=== PATIENT | female | born 1930 | race Hispanic/Latino ===

== ENCOUNTER 2017-01-24 04:32 | Emergency (ER) | payer MEDICARE, OTHER ==
[2017-01-24 04:33] VITALS: BMI 33.9
[2017-01-24 04:49] VITALS: RESP 18; TEMP 98.4
--- NOTE | 2017-01-24 05:16 | ED PDOC ---
Arrival/HPI - General Chief Complaint: GI Problem Time Seen by Provider: 01/24/17 05:03 Historian: Patient - History of Present Illness Narrative History of Present Illness (Text): 01/24/17 05:20 This is an 86Y F with PMH PUD, HTN, COPD who came in for constipation and rectal pain x 2 days. She reports she has been constipated and has not been able to go. She feels stool is leaking out. She denies abdominal pain, nausea, vomiting, CP, SOB, dysuria or hematuria. She does see Dr. Russell for her peptic ulcers. Time/Duration: < week (2 days ) Symptom Onset: Gradual Symptom Course: Unchanged Quality: Aching Severity Level: 5 Activities at Onset: Rest Context: Home Past Medical History - Provider Review Nursing Documentation Reviewed: Yes - Infectious Disease Hx of Infectious Diseases: None - Tetanus Immunization Tetanus Immunization: Unknown - Cardiac Hx Pacemaker: No - Pulmonary Hx Chronic Obstructive Pulmonary Disease (COPD): Yes - Neurological Hx Paralysis: No - Hematological/Oncological Hx Blood Transfusions: No Hx Blood Transfusion Reaction: No - Musculoskeletal/Rheumatological Hx Musculoskeletal Disorders: Yes - Psychiatric Hx Emotional Abuse: No Hx Physical Abuse: No Hx Substance Use: No - Surgical History Hx Appendectomy: Yes Hx Cholecystectomy: Yes - Anesthesia Hx Anesthesia Reactions: No Hx Malignant Hyperthermia: No - Suicidal Assessment Feels Threatened In Home Enviroment: No Family/Social History - Physician Review Nursing Documentation Reviewed: Yes Family/Social History: Hypertension Smoking Status: no Hx Alcohol Use: No Hx Substance Use: No Allergies/Home Meds Allergies/Adverse Reactions: Allergies iron Allergy (Verified 06/28/16 11:08) ITCHING Sulfa (Sulfonamide Antibiotics) Allergy (Verified 06/28/16 11:09) RASH Home Medications: Home Meds Medication Instructions Recorded Confirmed Albuterol Sulfate [Proair Hfa] 0.09 mg IH QID 10/04/13 01/24/17 Propranolol [Inderal] 40 mg PO BID 10/04/13 01/24/17 Tiotropium [Spiriva] 18 mcg IH DAILY 10/04/13 01/24/17 Cholecalciferol (Vitamin D3) 2,000 iu PO DAILY 07/18/15 01/24/17 [Vitamin D] Cranberry Fruit Extract [Cranberry] 250 mg PO DAILY 11/10/15 05/19/17 Fluticasone Propionate [Flovent 0.11 mg IH BID 07/18/15 01/24/17 Hfa] Losartan [Cozaar] 100 mg PO DAILY 07/19/15 01/24/17 Acetaminophen [Tylenol Extra 500 mg PO DAILY PRN 06/25/16 01/24/17 Strength] Amlodipine/Atorvastatin [Caduet 5 1 tab PO DAILY 06/25/16 01/24/17 mg-10 mg] Ascorbate Calcium [Vitamin C] 500 mg PO DAILY 06/25/16 01/24/17 Cyanocobalamin [Vitamin B12] 500 mg PO DAILY 06/25/16 01/24/17 Omeprazole 20 mg PO ACB 06/25/16 01/24/17 Solifenacin Succinate [Vesicare] 5 mg PO DAILY 06/25/16 01/24/17 Venlafaxine [Effexor] 37.5 mg PO BID 06/25/16 01/24/17 Review of Systems - Physician Review All systems were reviewed & negative as marked: Yes - Review of Systems Constitutional: Normal. absent: Fevers Respiratory: Normal. absent: SOB, Cough Cardiovascular: Normal. absent: Chest Pain, Palpitations Gastrointestinal: Abdominal Pain, Stool Changes, Constipation. absent: Diarrhea , Nausea, Vomiting Genitourinary Female: Normal. absent: Dysuria, Frequency, Hematuria Musculoskeletal: Normal Skin: Normal Neurological: Normal. absent: Headache, Dizziness Physical Exam Vital Signs Reviewed: Yes Vital Signs Temp Pulse Resp BP Pulse Ox 01/24/17 04:46 98.4 F 88 18 152/65 H 99 Temperature: Afebrile Blood Pressure: Normal Pulse: Regular Respiratory Rate: Normal Appearance: Positive for: Well-Appearing, Non-Toxic, Comfortable Pain Distress: None Mental Status: Positive for: Alert and Oriented X 3 - Systems Exam Head: Present: Atraumatic, Normocephalic Pupils: Present: PERRL Extroacular Muscles: Present: EOMI Conjunctiva: Present: Normal Mouth: Present: Moist Mucous Membranes Neck: Present: Normal Range of Motion Respiratory/Chest: Present: Clear to Auscultation, Good Air Exchange. No: Respiratory Distress, Accessory Muscle Use Cardiovascular: Present: Regular Rate and Rhythm, Normal S1, S2. No: Murmurs Abdomen: Present: Normal Bowel Sounds. No: Tenderness, Distention, Peritoneal Signs Rectal: Present: Normal Rectal Tone, Other (stool in rectum ). No: Occult Blood , Rectal Tenderness, Hemorrhoids Back: Present: Normal Inspection Upper Extremity: Present: Normal Inspection. No: Cyanosis, Edema Lower Extremity: Present: Normal Inspection. No: Edema Neurological: Present: GCS=15, CN II-XII Intact, Speech Normal Skin: Present: Warm, Dry, Normal Color. No: Rashes Psychiatric: Present: Alert, Oriented x 3, Normal Insight, Normal Concentration Medical Decision Making ED Course and Treatment: 01/24/17 05:22 Impression: This is an 86Y F with PMH HTN, PUD, COPD who came to ED for constipation and rectal pain. Stool was seen in rectal vault, no hemorrhoids or erythema noticed. Differential Diagnosis: -- constipation, fecal impaction Plan: -- Abdominal XR -- Reassess and disposition Prior Visits: Notes and results from previous visits were reviewed. Discharge Instructions: Re-evaluation. Patient feels better. Discussed results and plan with patient who expresses understanding. All questions answered and there is agreement with the plan to discharge home with instructions. Patient stable for discharge. Return if symptoms persist or worsen. - RAD Interpretation Narrative RAD Interpretations (Text): 01/24/17 06:07 Abdominal XR showed constipation. Radiology Orders: 01/24/17 05:06 ABD 2 VIEWS (FLAT/UP OR DECUB) [RAD] Stat - Medication Orders Current Medication Orders: Discontinued Medications Sodium Phosphate (Fleet Enema) 135 ml RC STAT STA Stop: 01/24/17 06:02 Last Admin: 01/24/17 06:27 Dose: 135 ml Disposition/Present on Arrival - Present on Arrival Any Indicators Present on Arrival: No History of DVT/PE: No History of Uncontrolled Diabetes: No Urinary Catheter: No History of Decub. Ulcer: No History Surgical Site Infection Following: None - Disposition Have Diagnosis and Disposition been Completed?: Yes Diagnosis: Constipation Disposition Time: 06:00 Patient Plan: Discharge Patient Problems: Current Active Problems Problem Status Onset Constipation Acute Condition: GOOD Discharge Instructions (ExitCare): Constipation (GEN) Print Language: MOLDOVAN Additional Instructions: Mrs. Dowling, thank you for letting us take care of you today. Your provider was Dr. Limon. You were treated for constipation. The emergency medical care you received today was directed at your acute symptoms. If you were prescribed any medication, please fill it and take as directed. It may take several days for your symptoms to resolve. Return to the Emergency Department if your symptoms worsen, do not improve, or if you have any other problems. Please contact your doctor or call one of the physicians/clinics you have been referred to that are listed on the Patient Visit Information form that is included in your discharge packet. Bring any paperwork you were given at discharge with you along with any medications you are taking to your follow up visit. Our treatment cannot replace ongoing medical care by a primary care provider (PCP) outside of the emergency department. [facility] care today. If you had an X-Ray or CT scan: A Radiologist will review the ED reading if any change in treatment is needed we will contact you. Prescriptions: Docusate Sodium [Colace] 100 mg PO Q8H PRN #20 capsule PRN Reason: Constipation Sod Phos,M-B/Na Phos,Di-Ba [Fleet Enema Extra] 230 ml RC Q12H PRN #4 enema PRN Reason: Constipation
[2017-01-24 07:14] VITALS: BP 145/85; PULSE 84; O2SAT 95
--- NOTE | 2017-01-24 09:16 | RAD ---
HISTORY: constipation COMPARISON: No prior. FINDINGS: BOWEL: Normal. No obstruction. No free air. There is a moderate amount of constipation in the right side of the colon BONES: Normal. OTHER FINDINGS: None. IMPRESSION: Moderate constipation
== END 2017-01-24 07:27 | disposition short-term general hospital (02) ==
LOC: ED 04:32
DX: K59.00 Constipation, unspecified (principal)

== ENCOUNTER 2017-02-18 11:09 | Day surgery (SDC) | payer MEDICARE, OTHER ==
[2017-02-18] MEDS ORDERED: Sodium Chloride 0.9% 1,000 ML IV SCH (12:45)
[2017-02-18] MEDS ORDERED: Phenylephrine 10 mg/ml Inj ONE (13:51)
[2017-02-18] MEDS ORDERED: ePHEDrine 50 mg/ml Inj ONE (13:51)
[2017-02-18] MEDS ORDERED: Propofol 10 mg/ml Inj (20 ML) ONE ×2 (13:53→14:36)
[2017-02-18] MEDS ORDERED: Lidocaine 1% Inj (20ml) ONE (13:54)
[2017-02-18 15:55] VITALS: PULSE 71; RESP 18; TEMP 98; O2SAT 95
[2017-02-18 16:11] VITALS: BP 146/76
== END 2017-02-18 16:45 | disposition home or self-care (01) ==
LOC: ENDO 11:09
PROVIDERS: ATTEND Internal Medicine Gastroenterology
DX: K57.30 Diverticulosis of large intestine without perforation or abscess without bleeding (principal); K56.2 Volvulus; K64.8 Other hemorrhoids
CPT/HCPCS: 45378; J2370; J2704; J7040 ×2

== ENCOUNTER 2017-10-22 09:27 | Emergency (ER) | payer MEDICARE, OTHER ==
[2017-10-22 09:44] VITALS: TEMP 99.9; BMI 32.5
--- NOTE | 2017-10-22 09:54 | ED PDOC ---
Arrival/HPI - General Chief Complaint: Flu-like Symptoms Time Seen by Provider: 10/22/17 09:34 Historian: Patient, Family - History of Present Illness Narrative History of Present Illness (Text): 10/22/17 09:52 An 87 year old female, whose past medical history includes Peptic Ulcer Disease , hypertension, COPD and recurrent UTIs, was brought in by EMS to the emergency department complaining of shortness of breath and chest pain since this morning. Patient also reports she was unable to walk today because her legs feel like "they're on fire". Patient reports to seeing Dr. Russell two days ago and had blood work done. Patient is aware she has UTI, but not taking any antibiotics yet, pending cultures. Patient's family reports breathing was at baseline yesterday and today appears short of breath. Patient reports vomiting this morning and cough but denies any other complaints at this time. Symptom Onset: Sudden Symptom Course: Unchanged Activities at Onset: Rest Context: Home Past Medical History - Provider Review Nursing Documentation Reviewed: Yes - Infectious Disease Hx of Infectious Diseases: None - Tetanus Immunization Tetanus Immunization: Unknown - Cardiac Hx Pacemaker: No - Pulmonary Hx Respiratory Disorders: Yes Hx Chronic Obstructive Pulmonary Disease (COPD): Yes - Neurological Hx Neurological Disorder: No - HEENT Hx HEENT Disorder: No - Renal Hx Renal Disorder: No - Endocrine/Metabolic Hx Endocrine Disorders: No - Hematological/Oncological Hx Blood Disorders: No - Integumentary Hx Dermatological Disorder: No - Musculoskeletal/Rheumatological Hx Musculoskeletal Disorders: Yes Other/Comment: KNEE PAIN - Psychiatric Hx Psychophysiologic Disorder: No Hx Substance Use: No - Surgical History Other/Comment: COLONOSCOPY - Anesthesia Hx Anesthesia Reactions: Yes (WOKE UP DURING COLONOSCOPY) Hx Malignant Hyperthermia: No - Suicidal Assessment Feels Threatened In Home Enviroment: No Family/Social History - Physician Review Nursing Documentation Reviewed: Yes Family/Social History: No Known Family HX Smoking Status: Heavy Smoker > 10 Cigarettes Daily Hx Alcohol Use: No Hx Substance Use: No Allergies/Home Meds Allergies/Adverse Reactions: Allergies Sulfa (Sulfonamide Antibiotics) Allergy (Verified 10/22/17 09:40) RASH Home Medications: Home Meds Medication Instructions Recorded Confirmed Propranolol [Inderal] 40 mg PO BID 10/04/13 07/04/17 Losartan [Cozaar] 100 mg PO DAILY 07/19/15 07/04/17 Amlodipine/Atorvastatin 1 tab PO DAILY 06/26/17 07/04/17 [Amlodipine Besylate and Atorvastatin Calcium ] Cholecalciferol (Vitamin D3) 1,000 unit PO DAILY 06/26/17 07/04/17 [Vitamin D3] Fluticasone Propionate [Flovent 1 puff IH BID 06/26/17 07/04/17 Hfa] Lubiprostone [Amitiza] 8 mcg PO BID 06/26/17 07/04/17 Tiotropium [Spiriva] 18 mcg IH DAILY 06/26/17 07/04/17 Venlafaxine [Effexor] 37.5 mg PO BID 06/26/17 07/04/17 Ascorbic Acid [Vitamin C 500 mg 500 mg PO DAILY 07/04/17 07/04/17 Tab] Cyanocobalamin [Vitamin B12 1000 1,000 mcg PO DAILY 07/04/17 07/04/17 mcg Tab] Ranitidine HCl [Sunmark Acid 150 mg PO BID 07/04/17 07/04/17 Video Producer] Review of Systems - Physician Review All systems were reviewed & negative as marked: Yes - Review of Systems Respiratory: SOB, Cough Cardiovascular: Chest Pain Gastrointestinal: Vomiting Physical Exam Vital Signs Reviewed: Yes Vital Signs Temp Pulse Resp BP Pulse Ox 10/22/17 09:37 99.9 F H 107 H 18 143/77 97 Temperature: Afebrile Blood Pressure: Normal Pulse: Tachycardic Respiratory Rate: Normal Appearance: Positive for: Well-Appearing, Uncomfortable Pain Distress: None Mental Status: Positive for: Alert and Oriented X 3 - Systems Exam Head: Present: Atraumatic, Normocephalic Pupils: Present: PERRL Extroacular Muscles: Present: EOMI Conjunctiva: Present: Normal Mouth: Present: Moist Mucous Membranes Neck: Present: Normal Range of Motion Respiratory/Chest: Present: Clear to Auscultation, Good Air Exchange. No: Respiratory Distress, Accessory Muscle Use Cardiovascular: Present: Regular Rate and Rhythm, Normal S1, S2. No: Murmurs Abdomen: Present: Normal Bowel Sounds. No: Tenderness, Distention, Peritoneal Signs Back: Present: Normal Inspection Upper Extremity: Present: Normal Inspection. No: Cyanosis, Edema Lower Extremity: Present: Normal Inspection, Neurovascularly Intact. No: Edema Neurological: Present: GCS=15, CN II-XII Intact, Speech Normal Skin: Present: Warm, Dry, Normal Color. No: Rashes Psychiatric: Present: Alert, Oriented x 3, Normal Insight, Normal Concentration Medical Decision Making ED Course and Treatment: 10/22/17 09:51 Impression: An 87 year old female with chest pain and shortness of breath. Plan: -- EKG -- chest xray -- labs -- Urinalysis -- Rocephin -- Reassess and disposition Prior Visits: Notes and results from previous visits were reviewed. Patient was last seen in the emergency department on 01/24/17 for evaluation of rectal pain and constipation. Progress Notes: 10/22/17 10:53 chest xray- Creator : Juancarlos Wyatt MD IMPRESSION: No active disease. No significant interval change compared to the prior examination(s). 10/22/17 11:17 EKG: Ordered, reviewed, and independently interpreted the EKG. Rate : 112 BPM Rhythm : sinus tachycardia Interpretation : no ischemic changes 10/22/17 11:53 On re-evaluation, patient feels better and is in no acute distress. I have discussed the results and plan with the patient, who expresses understanding. Patient in agreement with plan to be discharged home. Patient is stable for discharge. Patient was instructed to follow up with physician or return if symptoms worsen or new concerning symptoms arise. - Lab Interpretations Lab Results: 10/22/17 10:30 10/22/17 10:30 Lab Results 10/22/17 10:30: Sodium 140, Potassium 3.9, Chloride 103, Carbon Dioxide 23, Anion Gap 18, BUN 12, Creatinine 1.1, Est GFR ( Amer) 57, Est GFR (Non- Af Amer) 47, Random Glucose 133 H, Calcium 9.8, Total Bilirubin 1.3, AST 27, ALT 31, Alkaline Phosphatase 119, Total Protein 7.7, Albumin 4.0, Globulin 3.6, Albumin/Globulin Ratio 1.1 10/22/17 10:30: WBC 12.9 H, RBC 4.34, Hgb 13.9, Hct 41.8, MCV 96.3, MCH 32.0, MCHC 33.3, RDW 13.6, Plt Count 223, MPV 9.1, Gran % 93.6 H, Lymph % (Auto) 4.3 L , Rogers % (Auto) 1.2, Eos % (Auto) 0.6 L, Baso % (Auto) 0.3, Gran # 12.04 H, Lymph # (Auto) 0.6 L, Rogers # (Auto) 0.2, Eos # (Auto) 0.1, Baso # (Auto) 0.04, Neutrophils % (Manual) 94 H, Lymphocytes % (Manual) 5 L, Monocytes % (Manual) TEST NOT PERFORMED, Eosinophils % (Manual) 1 10/22/17 10:00: Urine Color Yellow, Urine Appearance Sl cloudy, Urine pH 7.0, Ur Specific Cutler 1.020, Urine Protein 30 H, Urine Glucose (UA) Negative, Urine Ketones Negative, Urine Blood Trace-lysed H, Urine Nitrate Positive H, Urine Bilirubin Negative, Urine Urobilinogen 0.2, Ur Leukocyte Esterase Moderate H, Urine RBC Negative, Urine WBC 25 - 30, Ur Epithelial Cells 4 - 5, Urine Bacteria Many I have reviewed the lab results: Yes - RAD Interpretation Radiology Orders: 10/22/17 09:46 CHEST PORTABLE [RAD] Stat - EKG Interpretation Interpreted by ED Physician: Yes Type: 12 lead EKG - Medication Orders Current Medication Orders: Discontinued Medications Ceftriaxone Sodium (Rocephin 1 Gram Ivpb) 1 gm in 100 mls @ 200 mls/hr IVPB STAT STA PRN Reason: Protocol Stop: 10/22/17 11:51 - Scribe Statement The provider has reviewed the documentation as recorded by the Macarena Harden Provider Scribe Attestation: All medical record entries made by the Scribe were at my direction and personally dictated by me. I have reviewed the chart and agree that the record accurately reflects my personal performance of the history, physical exam, medical decision making, and the department course for this patient. I have also personally directed, reviewed, and agree with the discharge instructions and disposition. Disposition/Present on Arrival - Present on Arrival Any Indicators Present on Arrival: No History of DVT/PE: No History of Uncontrolled Diabetes: No Urinary Catheter: No History of Decub. Ulcer: No History Surgical Site Infection Following: None - Disposition Have Diagnosis and Disposition been Completed?: Yes Diagnosis: UTI (urinary tract infection) Disposition: HOME/ ROUTINE Disposition Time: 12:00 Patient Plan: Discharge Patient Problems: Current Active Problems Problem Status Onset UTI (urinary tract infection) Acute Condition: STABLE Prescriptions: Ciprofloxacin HCl [Cipro] 500 mg PO BID #14 tablet Referrals: John Will MD [Primary Care Provider] - Follow up with primary Forms: seedchange (Icelandic)
[2017-10-22 10:15] LABS: URINE BILIRUBIN NEGATIVE (NEGATIVE); URINE BLOOD TRACE-LYSED (NEGATIVE); URINE GLUCOSE (UA) NEGATIVE (NEGATIVE); URINE LEUKOCYTE ESTERASE MODERATE Leu/uL (NEGATIVE); URINE NITRATE POSITIVE (NEGATIVE); URINE PROTEIN 30 mg/dL (<30 mg/dL); URINE UROBILINOGEN 0.2 E.U./dL (<1 E.U./dL)
[2017-10-22 10:23] LABS: URINE APPEARANCE SL CLOUDY (CLEAR); URINE COLOR YELLOW (YELLOW)
[2017-10-22 10:36] LABS: BASO # 0.04 K/mm3 (0.0-2.0); BASO % 0.3 % (0.0-3.0); EOS # 0.1 (0.0-0.7); EOS % 0.6 % (1.5-5.0); GRAN # 12.04 (1.4-6.5); GRAN % 93.6 % (50.0-68.0); HEMOGLOBIN 13.9 g/dL (12.0-16.0); LYMPH # 0.6 (1.2-3.4); LYMPH % 4.3 % (22.0-35.0); MEAN CELL VOLUME 96.3 fl (80.0-105.0); MEAN CORPUSCULAR HGB CONC 33.3 g/dl (31.0-37.0); MEAN PLATELET VOLUME 9.1 fl (7.0-11.0); MONO # 0.2 (0.1-0.6); MONO % 1.2 % (1.0-6.0); PLATELET COUNT 223 10^3/uL (120.0-450.0); RBC 4.34 10^6/uL (3.5-6.1); RED CELL DISTRIBUTION WIDTH 13.6 % (11.5-14.5); WHITE BLOOD COUNT 12.9 10^3/ul (4.5-11.0)
[2017-10-22 10:37] LABS: URINE RBC NEGATIVE /hpf (0-2); URINE WBC 25 - 30 /hpf (0-6)
[2017-10-22 10:38] LABS: URINE BACTERIA MANY (NEG)
[2017-10-22 10:47] LABS: ALB/GLOB RATIO 1.1 (1.1-1.8); CALCIUM 9.8 mg/dL (8.4-10.5)
--- NOTE | 2017-10-22 10:50 | RAD ---
HISTORY: Shortness of breath. COMPARISON: 08/08/2014. FINDINGS: LUNGS: No active pulmonary disease. PLEURA: No significant pleural effusion identified, no pneumothorax apparent. CARDIOVASCULAR: Normal. OSSEOUS STRUCTURES: No significant abnormalities. VISUALIZED UPPER ABDOMEN: Normal. OTHER FINDINGS: None. IMPRESSION: No active disease. No significant interval change compared to the prior examination(s).
[2017-10-22 11:03] LABS: EOSINOPHIL 1 % (0.0-3.0); LYMPHOCYTE 5 % (22.0-35.0); NEUTROPHIL 94 % (50.0-70.0)
[2017-10-22] MEDS ORDERED: cefTRIAXone 1 gm 1 GM/100 ML BAG IVPB STA (11:22)
[2017-10-22 13:30] VITALS: BP 130/58; PULSE 87; RESP 17; O2SAT 100
--- NOTE | 2017-10-22 15:26 | CARD ---
APPROVED REPORT EKG Measurement Heart [id number] <Conclusion> Sinus tachycardia with premature supraventricular complex NSSTW changes Prolonged QTc
== END 2017-10-22 13:30 | disposition home or self-care (01) ==
LOC: ED 09:27
DX: N39.0 Urinary tract infection, site not specified (principal); I10 Essential (primary) hypertension; F17.210 Nicotine dependence, cigarettes, uncomplicated
CPT/HCPCS: 71045; 80053; 81001; 85025; 87086; 93005; 96374; 99284; J0696

== ENCOUNTER 2018-02-06 22:15 | Emergency (ER) | payer MEDICARE, OTHER ==
[2018-02-06 22:24] VITALS: BMI 32.5
[2018-02-06 22:27] VITALS: RESP 18; TEMP 98.2
[2018-02-06] MEDS ORDERED: TDAP Vaccine 0.5 mL Syr IM ONE (22:36)
--- NOTE | 2018-02-06 22:38 | ED PDOC ---
Arrival/HPI - General Time Seen by Provider: 02/06/18 22:17 Historian: Patient - History of Present Illness Narrative History of Present Illness (Text): 02/06/18 22:34 87 year old female, whose past medical history includes Peptic Ulcer Disease, hypertension, COPD and recurrent UTIs, presents to the emergency department by Gopal s/p mechanical fall. Patient was leaving [facility] when she tripped and fell in the parking lot. Patient fell to the floor and hit her head. Patient was at her baseline earlier and denies taking any blood thinners. Patient reports left- sided rib pain and bilateral hand pain, but denies any loss of consciousness, fever, chills, chest pain, shortness of breath, nausea, vomiting, diarrhea, urinary symptoms, back pain, neck pain, headache, dizziness, or any other complaints. PMD: Dr. Will Time/Duration: Prior to Arrival Symptom Onset: Sudden Symptom Course: Unchanged Activities at Onset: Light Context: Tripped, Other (parking lot) Past Medical History - Provider Review Nursing Documentation Reviewed: Yes - Infectious Disease Hx of Infectious Diseases: None - Tetanus Immunization Tetanus Immunization: Unknown - Cardiac Hx Pacemaker: No - Pulmonary Hx Respiratory Disorders: Yes Hx Chronic Obstructive Pulmonary Disease (COPD): Yes - Neurological Hx Neurological Disorder: No - HEENT Hx HEENT Disorder: No - Renal Hx Renal Disorder: No - Endocrine/Metabolic Hx Endocrine Disorders: No - Hematological/Oncological Hx Blood Disorders: No - Integumentary Hx Dermatological Disorder: No - Musculoskeletal/Rheumatological Hx Musculoskeletal Disorders: Yes Other/Comment: KNEE PAIN - Psychiatric Hx Psychophysiologic Disorder: No Hx Substance Use: No - Surgical History Other/Comment: COLONOSCOPY - Anesthesia Hx Anesthesia Reactions: Yes (WOKE UP DURING COLONOSCOPY) Hx Malignant Hyperthermia: No - Suicidal Assessment Feels Threatened In Home Enviroment: No Family/Social History - Physician Review Nursing Documentation Reviewed: Yes Family/Social History: No Known Family HX Smoking Status: Heavy Smoker > 10 Cigarettes Daily Hx Alcohol Use: No Hx Substance Use: No Allergies/Home Meds Allergies/Adverse Reactions: Allergies Sulfa (Sulfonamide Antibiotics) Allergy (Verified 02/06/18 22:39) RASH Home Medications: Home Meds Medication Instructions Recorded Confirmed Propranolol [Inderal] 40 mg PO BID 10/04/13 02/06/18 Losartan [Cozaar] 100 mg PO DAILY 07/19/15 02/06/18 Amlodipine/Atorvastatin 1 tab PO DAILY 06/26/17 02/06/18 [Amlodipine Besylate and Atorvastatin Calcium ] Cholecalciferol (Vitamin D3) 1,000 unit PO DAILY 06/26/17 02/06/18 [Vitamin D3] Fluticasone Propionate [Flovent 1 puff IH BID 06/26/17 02/06/18 Hfa] Lubiprostone [Amitiza] 8 mcg PO BID 06/26/17 02/06/18 Tiotropium [Spiriva] 18 mcg IH DAILY 06/26/17 02/06/18 Venlafaxine [Effexor] 37.5 mg PO BID 06/26/17 02/06/18 Ascorbic Acid [Vitamin C 500 mg 500 mg PO DAILY 07/04/17 02/06/18 Tab] Cyanocobalamin [Vitamin B12 1000 1,000 mcg PO DAILY 07/04/17 02/06/18 mcg Tab] Ranitidine HCl [Sunmark Acid 150 mg PO BID 07/04/17 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 absent: Back Pain, Neck Pain Neurological: absent: Headache, Dizziness, Other (LOC) Physical Exam Vital Signs Reviewed: Yes Vital Signs Temp Pulse Resp BP Pulse Ox 02/07/18 00:30 85 18 149/67 100 02/06/18 22:27 98.2 F 86 18 153/77 H 95 Temperature: Afebrile Blood Pressure: Hypertensive Pulse: Regular Respiratory Rate: Normal Appearance: Positive for: Well-Appearing, Non-Toxic, Comfortable Pain Distress: None Mental Status: Positive for: Alert and Oriented X 3 - Systems Exam Head: Present: Normocephalic, Laceration (small laceration above the left orbit) Pupils: Present: PERRL Extroacular Muscles: Present: EOMI Conjunctiva: Present: Normal Mouth: Present: Moist Mucous Membranes Neck: Present: Normal Range of Motion Respiratory/Chest: Present: Clear to Auscultation, Good Air Exchange, Tender to Palpation (Ledt chest wall tenderness). No: Respiratory Distress, Accessory Muscle Use Cardiovascular: Present: Regular Rate and Rhythm, Normal S1, S2. No: Murmurs Abdomen: No: Tenderness, Distention, Peritoneal Signs Back: Present: Normal Inspection Upper Extremity: Present: Normal Inspection. No: Cyanosis, Edema Lower Extremity: Present: Tenderness (hip tenderness). No: Edema Neurological: Present: GCS=15, CN II-XII Intact, Speech Normal Skin: Present: Warm, Dry, Normal Color. No: Rashes Psychiatric: Present: Alert, Oriented x 3, Normal Insight, Normal Concentration Medical Decision Making ED Course and Treatment: 02/06/18 22:47 Impression: 87 year old female presents complaining of left chest wall pain and bilateral hand pain s/p mechanical fall. PE shows left chest wall tenderness, bilateral hand tenderness, and hip tenderness. Plan: -- CT Chest w/o contrast -- CT Head w/o Contrast -- CT Maxillofacial w/o contrast -- Chest X-Ray -- Boostrix Vaccine Inj, Tylenol -- Hand left 3 views x-ray -- Hand right 3 views x-ray -- Hip left 4 view x-ray -- Reassess and disposition Prior Visits: Notes and results from previous visits were reviewed. Patient was last seen in the emergency department on 10/22/17 presents complaining of chest pain since this morning and leg pain. Patient was discharged. Progress Notes: 02/06/18 23:33 Removed patient's ring. 02/06/18 23:39 Hand left 3V x-ray Impression: As read by me, negative for fracture Hand right 3V x-ray Impression: As read by me, negative for fracture Hip left 4V x-ray Impression: As read by me, negative for fracture CXR Impression: As read by me, NAD. EXAM: CT Head Without Intravenous Contrast Dictated and Authenticated by: Carlee Leggett MD 02/06/2018 11:53 PM IMPRESSION: No acute intracranial abnormality; chronic changes in the left maxillary sinus EXAM: CT Maxillofacial Without Intravenous Contrast Dictated and Authenticated by: Carlee Leggett MD 02/06/2018 11:57 PM IMPRESSION: Chronic sinus disease; no facial bone fractures EXAM: CT Chest Without Intravenous Contrast Dictated and Authenticated by: Carlee Leggett MD 02/07/2018 12:04 AM IMPRESSION: No acute intrathoracic injury; no acute displaced rib fracture seen An acute nondisplaced rib fracture may be radiographically occult Additional nonemergent findings as described above. 02/07/18 00:16 Reevaluation: On reevaluation the patient feels better and is in no acute distress. Pain is managed. I have discussed the results and plan with the patient, who expresses understanding. Patient given the opportunity to ask question, all questions were answered and there is agreement with the plan to discharge. Patient is stable for discharge. Patient was instructed to follow up with physician/clinic in 1-2 days or return if symptoms persist/worsen or new concerning symptoms arise. 02/07/18 03:49 mechanical fall imaging neg as read by me. stable for dc. abd soft no ttp. - RAD Interpretation Radiology Orders: 02/06/18 22:35 CHEST W/O CONTRAST [CT] Stat HEAD W/O CONTRAST [CT] Stat CHEST PORTABLE [RAD] Stat HIP MIN 2V W/ PELVIS LT [RAD] Stat 02/06/18 22:37 MAXILLOFACIAL W/O CONTRAST [CT] Stat 02/06/18 22:45 HAND 3 VIEWS BI [RAD] Stat - Medication Orders Current Medication Orders: Discontinued Medications Acetaminophen (Tylenol 325mg Tab) 975 mg PO STAT STA Stop: 02/06/18 22:37 Last Admin: 02/06/18 22:40 Dose: 975 mg MAR Pain/Vitals Document 02/06/18 22:40 AD (Rec: 02/06/18 23:09 [id number]) Pain Reassessment Is This A Pain ReAssessment? No Pain Scale Used Pain Scale Used Numeric Location Intensity 7 Scale Used Numeric Tetanus/Reduced Diphtheria/Acell Pertussis (Boostrix Vaccine Inj) 0.5 ml IM .ONCE ONE Stop: 02/06/18 22:37 Last Admin: 02/06/18 22:40 Dose: 0.5 ml Immunization Registry Document 02/06/18 22:40 AD (Rec: 02/06/18 23:09 [id number]) Immunization Registry Consent Date 02/06/18 - Scribe Statement The provider has reviewed the documentation as recorded by the Scribe Alaa [place] Provider Scribe Attestation: All medical record entries made by the Scribe were at my direction and personally dictated by me. I have reviewed the chart and agree that the record accurately reflects my personal performance of the history, physical exam, medical decision making, and the department course for this patient. I have also personally directed, reviewed, and agree with the discharge instructions and disposition. Disposition/Present on Arrival - Present on Arrival Any Indicators Present on Arrival: No History of DVT/PE: No History of Uncontrolled Diabetes: No Urinary Catheter: No History Surgical Site Infection Following: None - Disposition Have Diagnosis and Disposition been Completed?: Yes Diagnosis: Rib contusion, Contusion, hip, Hand contusion Disposition: HOME/ ROUTINE Disposition Time: 12:00 Condition: STABLE Discharge Instructions (ExitCare): Closed Head Injury, Contusion (DC), Preventing Falls, Bruised Rib (DC) Additional Instructions: follow up with your doctor. return to er with worsening symptoms or concerns. Referrals: John Will MD [Primary Care Provider] - Follow up with primary Forms: [place] (Indonesian)
--- NOTE | 2018-02-06 23:53 | CT ---
EXAM: CT Head Without Intravenous Contrast EXAM DATE/TIME: 02/06/2018 10:35 PM CLINICAL HISTORY: 87 years old, female; Injury or trauma; Fall; Initial encounter; Abrasion; Head, generalized TECHNIQUE: Axial computed tomography images of the head/brain without intravenous contrast. All CT scans at this facility use one or more dose reduction techniques, viz.: automated exposure control; ma/kV adjustment per patient size (including targeted exams where dose is matched to indication; i.e. head); or iterative reconstruction technique. Coronal and sagittal reformatted images were created and reviewed. COMPARISON: There are no prior studies for comparison. FINDINGS: Brain: There is prominence of sulci, gyri and ventricles. There is no midline shift. There are no intra-axial or extra axial mass lesions or areas of hemorrhage. Espino-white differentiation is maintained. Ventricles: See above. Bony structures: Cranial vault is intact. Soft tissues: unremarkable Sinuses: There is partial desiccation of the left maxillary sinus. With dystrophic calcification a portion of the sinus contents. Right maxillary sinus, ethmoid, frontal and sphenoid sinuses are unremarkable. Ears and mastoids: Middle ears and mastoids unremarkable. Orbits: There are no acute orbital abnormalities. IMPRESSION: No acute intracranial abnormality; chronic changes in the left maxillary sinus
--- NOTE | 2018-02-06 23:57 | CT ---
EXAM: CT Maxillofacial Without Intravenous Contrast EXAM DATE/TIME: 02/06/2018 10:37 PM CLINICAL HISTORY: 87 years old, female; Injury or trauma; Fall; Initial encounter; Abrasion; Forehead TECHNIQUE: Axial computed tomography images of the face without intravenous contrast. All CT scans at this facility use one or more dose reduction techniques, viz.: automated exposure control; ma/kV adjustment per patient size (including targeted exams where dose is matched to indication; i.e. head); or iterative reconstruction technique. Coronal and sagittal reformatted images were created and reviewed. COMPARISON: There are no prior studies for comparison. FINDINGS: Bones/joints: There are no acute facial bone fractures. There degenerative changes of the visualized cervical spine. Soft tissues: unremarkable Orbits: There are no acute orbital abnormalities. Salivary glands: Parotid and submandibular glands are unremarkable. Sinuses: There is mild mucoperiosteal thickening in the left frontal sinus. There is mild mucoperiosteal thickening in the ethmoid air cells and the right maxillary sinus. There is almost complete opacification of the left maxillary sinus with dystrophic calcification. Sphenoid sinus is unremarkable Ears and mastoids: Middle ears and mastoids are unremarkable. Dental: Patient is edentulous. Brain: No focal abnormalities are seen in visualized portion of the brain. IMPRESSION: Chronic sinus disease; no facial bone fractures Additional nonemergent findings as described above.
--- NOTE | 2018-02-07 00:05 | CT ---
EXAM: CT Chest Without Intravenous Contrast EXAM DATE/TIME: 02/06/2018 10:35 PM CLINICAL HISTORY: 87 years old, female; Injury or trauma; Fall; Initial encounter; Abrasion; Injury details: Left rib pain TECHNIQUE: Axial computed tomography images of the chest without intravenous contrast. All CT scans at this facility use one or more dose reduction techniques, viz.: automated exposure control; ma/kV adjustment per patient size (including targeted exams where dose is matched to indication; i.e. head); or iterative reconstruction technique. Coronal and sagittal reformatted images were created and reviewed. COMPARISON: CT - CHEST W/O CONTRAST 2016-03-14 09:50 FINDINGS: Lungs and pleural spaces: Trachea and main bronchi are patent.There is no pneumothorax. There is atelectasis and scarring greatest at the lung bases. There is no focal consolidation or contusion. There are no effusions. Heart and vasculature: The heart is mildly enlarged. There are coronary artery calcifications.Aorta and main pulmonary artery are normal in caliber. Mediastinum: The esophagus is unremarkable. There is a hiatal hernia. There is shotty mediastinal nodes.[place] are not optimally evaluated without contrast material. Thyroid: Thyroid is unremarkable Bones/joints: There are no acute displaced rib fractures. There degenerative changes in the spine. There is been further loss of height at T12 and L1. There are bridging osteophytes and syndesmophytes at multiple thoracic levels. Soft tissues: unremarkable Upper abdomen: There are no acute abnormalities in the visualized portion of the abdomen. Gallbladder is absent. IMPRESSION: No acute intrathoracic injury; no acute displaced rib fracture seen An acute nondisplaced rib fracture may be radiographically occult Additional nonemergent findings as described above.
[2018-02-07 00:49] VITALS: BP 149/67; PULSE 85; O2SAT 100
--- NOTE | 2018-02-07 12:15 | RAD ---
HISTORY: fall COMPARISON: Comparison chest 10/22/2017 FINDINGS: LUNGS: Persistent minor scarring changes left CP angle region. PLEURA: No significant pleural effusion identified, no pneumothorax apparent. CARDIOVASCULAR: Heart appears enlarged unchanged. Aorta slightly ectatic and uncoiled. TheNormal. OSSEOUS STRUCTURES: The osseous structures appear grossly intact so far as can be seen. VISUALIZED UPPER ABDOMEN: Normal. OTHER FINDINGS: None. IMPRESSION: Persistent minor scarring changes left CP angle region.
--- NOTE | 2018-02-07 12:20 | RAD ---
PROCEDURE: Left Hip X-ray Radiographs. HISTORY: fall COMPARISON: Comparison made with CT scan of the abdomen pelvis 03/24/2017 which image the pelvis and left hip in 3 planes. FINDINGS: BONES: No evidence of acute displaced fracture nor dislocation. The osseous structures appear intact. JOINTS: Minor arthritic changes both hip joints. . SOFT TISSUES: Normal. OTHER FINDINGS: None. IMPRESSION: No evidence acute displaced fracture nor dislocation. If symptoms persist or occult fracture suspected clinically consider followup CT scan or MRI of the pelvis - hips Mild DJD both hips
--- NOTE | 2018-02-07 17:38 | RAD ---
PROCEDURE: Bilateral hand radiographs. No evidence HISTORY: trauma COMPARISON: None. FINDINGS: BONES: No evidence of acute displaced fracture nor dislocation. . The osseous structures appear intact. JOINTS: Multi articular degenerative osteoarthritis present on though most severely affecting the 1st metacarpal/greater articulations. Bilateral triscaphe degenerative osteoarthritis also noted. SOFT TISSUES: No evidence of subcutaneous emphysema or radiopaque foreign bodies. OTHER FINDINGS: None. IMPRESSION: No definitive radiographic evidence of acute displaced fracture nor dislocation. 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 Significant bilateral triscaphe degenerative osteoarthritis present as well If symptoms persist or occult fracture suspected clinically recommend repeat radiographs 7-10 days as most fractures should become radiographically evident this timeframe.
== END 2018-02-07 00:30 | disposition home or self-care (01) ==
LOC: ED 22:15
DX: S20.212A Contusion of left front wall of thorax, initial encounter (principal); S70.02XA Contusion of left hip, initial encounter; S60.222A Contusion of left hand, initial encounter; S60.221A Contusion of right hand, initial encounter; W01.0XXA Fall on same level from slipping, tripping and stumbling without subsequent striking against object, initial encounter; Y92.481 Parking lot as the place of occurrence of the external cause; Z23 Encounter for immunization

== ENCOUNTER 2018-02-16 14:02 | Emergency (ER) | payer MEDICARE, OTHER ==
[2018-02-16 14:02] VITALS: BMI 32.5
[2018-02-16 14:13] VITALS: BP 169/68; PULSE 82; TEMP 97.7; O2SAT 97
[2018-02-16 14:49] LABS: BASO # 0.12 K/mm3 (0.0-2.0); BASO % 1.4 % (0.0-3.0); EOS # 0.4 (0.0-0.7); EOS % 4.3 % (1.5-5.0); GRAN # 4.39 (1.4-6.5); GRAN % 49.8 % (50.0-68.0); HEMOGLOBIN 13.2 g/dL (12.0-16.0); LYMPH % 33.6 % (22.0-35.0); MEAN CELL VOLUME 91.8 fl (80.0-105.0); MEAN CORPUSCULAR HGB CONC 33.8 g/dl (31.0-37.0); MEAN PLATELET VOLUME 8.9 fl (7.0-11.0); MONO % 10.9 % (1.0-6.0); RBC 4.26 10^6/uL (3.5-6.1); RED CELL DISTRIBUTION WIDTH 13.2 % (11.5-14.5); WHITE BLOOD COUNT 8.8 10^3/ul (4.5-11.0)
--- NOTE | 2018-02-16 14:50 | ED PDOC ---
Arrival/HPI - General Chief Complaint: Shortness Of Breath Time Seen by Provider: 02/16/18 14:21 Historian: Patient - History of Present Illness Narrative History of Present Illness (Text): 02/16/18 14:46 87 year old female presents to the Emergency department complaining of left rib pain. She reports that it is persistent since a fall on 02/06 but that is worsened in the last 2 days. Pain is worse with inspiration and palpation. Patient denies any fever, chills, chest pain, cough, shortness of breath, nausea , vomiting, diarrhea, urinary symptoms, back pain, neck pain, headache, dizziness, or any other complaints. Patient was evaluated in the Emergency department on 02/06/18 for a mechanical fall; CT scans of the chest, head, and maxillofacial, as well as xray of the pelvis were negative. Patient was discharged home. 02/16/18 15:35 Time/Duration: < week (2 days) Symptom Onset: Gradual Symptom Course: Unchanged Context: Home Past Medical History - Provider Review Nursing Documentation Reviewed: Yes - Infectious Disease Hx of Infectious Diseases: None - Tetanus Immunization Tetanus Immunization: Unknown - Reproductive Menopause: No - Cardiac Hx Pacemaker: No - Pulmonary Hx Respiratory Disorders: Yes Hx Chronic Obstructive Pulmonary Disease (COPD): Yes - Neurological Hx Neurological Disorder: No - HEENT Hx HEENT Disorder: No - Renal Hx Renal Disorder: No - Endocrine/Metabolic Hx Endocrine Disorders: No - Hematological/Oncological Hx Blood Disorders: No - Integumentary Hx Dermatological Disorder: No - Musculoskeletal/Rheumatological Hx Musculoskeletal Disorders: Yes Other/Comment: KNEE PAIN - Genitourinary/Gynecological Hx Urinary Tract Infection: Yes - Psychiatric Hx Psychophysiologic Disorder: No Hx Substance Use: No - Surgical History Other/Comment: COLONOSCOPY - Anesthesia Hx Anesthesia Reactions: Yes (WOKE UP DURING COLONOSCOPY) Hx Malignant Hyperthermia: No - Suicidal Assessment Feels Threatened In Home Enviroment: No Family/Social History - Physician Review Nursing Documentation Reviewed: Yes Family/Social History: Unknown Family HX Smoking Status: Heavy Smoker > 10 Cigarettes Daily Hx Alcohol Use: No Hx Substance Use: No Allergies/Home Meds Allergies/Adverse Reactions: Allergies Sulfa (Sulfonamide Antibiotics) Allergy (Verified 02/06/18 22:39) RASH Home Medications: Home Meds Medication Instructions Recorded Confirmed Propranolol [Inderal] 40 mg PO BID 10/04/13 02/06/18 Losartan [Cozaar] 100 mg PO DAILY 07/19/15 02/06/18 Amlodipine/Atorvastatin 1 tab PO DAILY 06/26/17 02/06/18 [Amlodipine Besylate and Atorvastatin Calcium ] Cholecalciferol (Vitamin D3) 1,000 unit PO DAILY 06/26/17 02/06/18 [Vitamin D3] Fluticasone Propionate [Flovent 1 puff IH BID 06/26/17 02/06/18 Hfa] Lubiprostone [Amitiza] 8 mcg PO BID 06/26/17 02/06/18 Tiotropium [Spiriva] 18 mcg IH DAILY 06/26/17 02/06/18 Venlafaxine [Effexor] 37.5 mg PO BID 06/26/17 02/06/18 Ascorbic Acid [Vitamin C 500 mg 500 mg PO DAILY 07/04/17 02/06/18 Tab] Cyanocobalamin [Vitamin B12 1000 1,000 mcg PO DAILY 07/04/17 02/06/18 mcg Tab] Ranitidine HCl [Sunmark Acid 150 mg PO BID 07/04/17 02/06/18 Demolition Engineer] Review of Systems - Review of Systems Constitutional: absent: Fevers, Night Sweats ENT: absent: Rhinorrhea Respiratory: absent: SOB, Cough, Sputum, Wheezing Cardiovascular: Chest Pain (L sided rib pain with palpation) Gastrointestinal: absent: Abdominal Pain, Constipation, Diarrhea, Nausea, Vomiting Genitourinary Female: absent: Dysuria Musculoskeletal: Arthralgias. absent: Back Pain, Neck Pain Skin: absent: Rash Neurological: absent: Headache, Dizziness, Focal Weakness, Gait Changes, Speech Changes, Facial Droop Endocrine: absent: Diaphoresis Physical Exam Vital Signs Reviewed: Yes Vital Signs Temp Pulse Resp BP Pulse Ox 02/16/18 14:05 97.7 F 82 22 169/68 H 97 Temperature: Afebrile Blood Pressure: Hypertensive Pulse: Regular Respiratory Rate: Normal Appearance: Positive for: Well-Appearing, Non-Toxic, Comfortable Pain Distress: None Mental Status: Positive for: Alert and Oriented X 3 - Systems Exam Head: Present: Atraumatic, Normocephalic Pupils: Present: PERRL Extroacular Muscles: Present: EOMI Conjunctiva: Present: Normal Mouth: Present: Moist Mucous Membranes Neck: Present: Normal Range of Motion Respiratory/Chest: Present: Clear to Auscultation, Good Air Exchange, Tender to Palpation, Other (bony left sided rib tenderness under left breast). No: Respiratory Distress, Accessory Muscle Use, Tachypneic (speaking in complete sentences) Cardiovascular: Present: Regular Rate and Rhythm, Normal S1, S2. No: Murmurs Abdomen: No: Tenderness, Distention, Peritoneal Signs Back: Present: Normal Inspection Upper Extremity: Present: Normal Inspection. No: Cyanosis, Edema Lower Extremity: Present: Normal Inspection. No: Edema Neurological: Present: GCS=15, CN II-XII Intact, Speech Normal Skin: Present: Warm, Dry, Normal Color. No: Rashes Psychiatric: Present: Alert, Oriented x 3, Normal Insight, Normal Concentration Medical Decision Making ED Course and Treatment: 02/16/18 15:01 Impression: 87 year old female presents to the Emergency department complaining of left rib pain. Plan: -- Left ribs and chest xray -- EKG -- Labs -- Toradol -- Reassess and disposition Prior Visits: Notes and results from previous visits were reviewed. Patient was last seen in the emergency department on 02/06/18 for a mechanical fall; CT scans of the chest, head, and maxillofacial, as well as xray of the pelvis were negative. Patient was discharged home. Progress Notes: 02/16/18 15:03 EKG: Ordered, reviewed, and independently interpreted the EKG. Rate : 79 BPM Rhythm : NSR Interpretation : Normal intervals. 02/16/18 15:08 Previous imaging of cxray and ct reviewed and read as negative. Rib series now shows clear rib fracture to L 7th and 8th rib. D-dimer initially ordered due to prior negative imaging with now shortness of breath concerning for PE, but now based on imaging, shortness of breath can be explained by rib fractures. 02/16/2018 15:07:43 Radiographs of the Chest and Left Ribs FINDINGS: LEFT RIBS: Displaced fractures are seen of the left 6th and 7th ribs LUNGS: Clear. PLEURA: No pneumothorax or pleural fluid. CARDIOVASCULAR: Normal sized heart. No pulmonary vascular congestion. OTHER FINDINGS: None. IMPRESSION: Displaced fractures of the left 6th and 7th ribs. No pneumothorax 02/16/18 15:18 Spoke to patient and daughter at length. Patient instructed on the importance of pain medication and using incentive spirometer. She is requesting dc. 02/16/18 15:36 - Lab Interpretations Lab Results: 02/16/18 14:25 02/16/18 14:25 Lab Results 02/16/18 14:25: D-Dimer, Quantitative 385 H 02/16/18 14:25: Sodium 140, Potassium 4.6, Chloride 103, Carbon Dioxide 27, Anion Gap 14, BUN 14, Creatinine 0.9, Est GFR ( Amer) > 60, Est GFR (Non- Af Amer) 60, Random Glucose 113 H, Calcium 9.1, Total Bilirubin 0.5, AST 28, ALT 20, Alkaline Phosphatase 120, Troponin I < 0.01, Total Protein 7.4, Albumin 3.9, Globulin 3.5, Albumin/Globulin Ratio 1.1 02/16/18 14:25: WBC 8.8 D, RBC 4.26, Hgb 13.2, Hct 39.1, MCV 91.8 D, MCH 31.0 , MCHC 33.8, RDW 13.2, Plt Count 276, MPV 8.9, Gran % 49.8 L, Lymph % (Auto) 33.6, [place] % (Auto) 10.9 H, Eos % (Auto) 4.3, Baso % (Auto) 1.4, Gran # 4.39, Lymph # (Auto) 3.0, [place] # (Auto) 1.0 H, Eos # (Auto) 0.4, Baso # (Auto) 0.12 - RAD Interpretation Radiology Orders: 02/16/18 14:27 RIBS LEFT & PA CHEST [RAD] Stat - EKG Interpretation Interpreted by ED Physician: Yes Type: 12 lead EKG - Medication Orders Current Medication Orders: Discontinued Medications Ketorolac Tromethamine (Toradol) 30 mg IVP STAT STA Stop: 02/16/18 14:30 Last Admin: 02/16/18 15:11 Dose: 30 mg MAR Pain Assessment Document 02/16/18 15:11 ARUN (Rec: 02/16/18 15:12 ARUN [id number]) Pain Reassessment Is this a pain reassessment? No Sleep Is patient sleeping during reassessment? No Presence of Pain Presence of Pain Yes IVP Administration Document 02/16/18 15:11 ARUN (Rec: 02/16/18 15:12 ARUN [id number]) Charges for Administration # of IVP Administrations 1 - Scribe Statement The provider has reviewed the documentation as recorded by the Scribe Lawson Garcia All medical record entries made by the Scribe were at my direction and personally dictated by me. I have reviewed the chart and agree that the record accurately reflects my personal performance of the history, physical exam, medical decision making, and the department course for this patient. I have also personally directed, reviewed, and agree with the discharge instructions and disposition. Disposition/Present on Arrival - Present on Arrival Any Indicators Present on Arrival: No History of DVT/PE: No History of Uncontrolled Diabetes: No Urinary Catheter: No History of Decub. Ulcer: No History Surgical Site Infection Following: None - Disposition Have Diagnosis and Disposition been Completed?: Yes Diagnosis: Ribs, multiple fractures Disposition: HOME/ ROUTINE Disposition Time: 15:19 Patient Plan: Discharge Patient Problems: Current Active Problems Problem Status Onset Ribs, multiple fractures Acute Condition: GOOD Discharge Instructions (ExitCare): Rib Fractures in Adults, Rib Fracture (DC) Additional Instructions: Follow-up with Dr. Will within 2 days. Return to ED if condition worsens. Motrin 600mg every 6 hours for pain. Percocet for severe breakthrough pain. Prescriptions: oxyCODONE/Acetaminophen [Percocet 5/325 mg Tab] 1 ea PO Q6 #12 tab Referrals: John Will MD [Primary Care Provider] - Follow up with primary Forms: [employer] ([place])
[2018-02-16 14:56] LABS: ALB/GLOB RATIO 1.1 (1.1-1.8); ALBUMIN 3.9 g/dL (3.0-4.8); ALT/SGPT 20 U/L (7-56); AST/SGOT 28 U/L (14-36); BLOOD UREA NITROGEN 14 mg/dL (7-21); CALCIUM 9.1 mg/dL (8.4-10.5); GFR AFRICAN-AMERICAN > 60; GFR NON-AFRICAN AMERICAN 60
[2018-02-16 15:07] LABS: TROPONIN I < 0.01 ng/mL
--- NOTE | 2018-02-16 15:09 | RAD ---
PROCEDURE: Radiographs of the Chest and Left Ribs. HISTORY: rib pain after fall COMPARISON: None available. TECHNIQUE: Frontal radiograph of the chest and multiple oblique radiographs of the left ribs were obtained. FINDINGS: LEFT RIBS: Displaced fractures are seen of the left 6th and 7th ribs LUNGS: Clear. PLEURA: No pneumothorax or pleural fluid. CARDIOVASCULAR: Normal sized heart. No pulmonary vascular congestion. OTHER FINDINGS: None. IMPRESSION: Displaced fractures of the left 6th and 7th ribs. No pneumothorax
[2018-02-16 16:01] VITALS: RESP 16
--- NOTE | 2018-02-17 00:30 | CARD ---
APPROVED REPORT EKG Measurement Heart [id number] [id number] <Conclusion> Normal sinus rhythm Normal ECG
== END 2018-02-16 15:40 | disposition home or self-care (01) ==
LOC: ED 14:02
DX: S22.42XA Multiple fractures of ribs, left side, initial encounter for closed fracture (principal); W19.XXXA Unspecified fall, initial encounter; F17.210 Nicotine dependence, cigarettes, uncomplicated; J44.9 Chronic obstructive pulmonary disease, unspecified
CPT/HCPCS: 71101; 80053; 84484; 85025; 85378; 93005; 96374; 99282; J1885

== ENCOUNTER 2018-04-13 13:40 | Emergency (ER) | payer MEDICARE, OTHER ==
[2018-04-13 13:57] VITALS: RESP 18
[2018-04-13 14:02] VITALS: BMI 33.1
--- NOTE | 2018-04-13 14:36 | ED PDOC ---
Arrival/HPI - General Chief Complaint: Lower Extremity Problem/Injury Time Seen by Provider: 04/13/18 14:05 Historian: Patient - History of Present Illness Narrative History of Present Illness (Text): 04/13/18 14:16 87 year old female, with past medical history of Peptic Ulcer Disease, arthritis , anxiety, palpitation, hypertension, COPD and recurrent UTIs, presents to the Emergency department complaining of pins and needles sensation to her right hip radiating down to her lateral aspect of right leg since Friday. Patient informs persistent symptoms prompting her to present to the Emergency department for evaluation. Patient denies similar symptoms in the past and denies any trauma to her right side. Patient denies any fever, chills, nausea, vomiting, diarrhea , abdominal pain, chest pain, palpitation, shortness of breath or any other complaints. PMD: Dr. Will Time/Duration: < week Symptom Onset: Gradual Symptom Course: Unchanged Activities at Onset: Light Context: Home Past Medical History - Provider Review Nursing Documentation Reviewed: Yes - Infectious Disease Hx of Infectious Diseases: None - Tetanus Immunization Tetanus Immunization: Unknown - Cardiac Hx Cardiac Disorders: No - Pulmonary Hx Respiratory Disorders: Yes Hx Chronic Obstructive Pulmonary Disease (COPD): Yes - Neurological Hx Neurological Disorder: No - HEENT Hx HEENT Disorder: No - Renal Hx Renal Disorder: No - Endocrine/Metabolic Hx Endocrine Disorders: No - Hematological/Oncological Hx Blood Disorders: No - Integumentary Hx Dermatological Disorder: No - Musculoskeletal/Rheumatological Hx Musculoskeletal Disorders: Yes Hx Arthritis: Yes Other/Comment: KNEE PAIN - Gastrointestinal Hx Gastrointestinal Disorders: No - Genitourinary/Gynecological Hx Genitourinary Disorders: Yes Hx Urinary Tract Infection: Yes - Psychiatric Hx Psychophysiologic Disorder: No Hx Substance Use: No - Surgical History Other/Comment: COLONOSCOPY - Anesthesia Hx Anesthesia Reactions: Yes (WOKE UP DURING COLONOSCOPY) Hx Malignant Hyperthermia: No - Suicidal Assessment Feels Threatened In Home Enviroment: No Family/Social History - Physician Review Nursing Documentation Reviewed: Yes Family/Social History: No Known Family HX Smoking Status: Heavy Smoker > 10 Cigarettes Daily Hx Alcohol Use: No Hx Substance Use: No Allergies/Home Meds Allergies/Adverse Reactions: Allergies Sulfa (Sulfonamide Antibiotics) Allergy (Verified 04/13/18 13:55) RASH Home Medications: Home Meds Medication Instructions Recorded Confirmed Propranolol [Inderal] 40 mg PO BID 10/04/13 02/06/18 Losartan [Cozaar] 100 mg PO DAILY 07/19/15 02/06/18 Amlodipine/Atorvastatin 1 tab PO DAILY 06/26/17 02/06/18 [Amlodipine Besylate and Atorvastatin Calcium ] Cholecalciferol (Vitamin D3) 1,000 unit PO DAILY 06/26/17 02/06/18 [Vitamin D3] Fluticasone Propionate [Flovent 1 puff IH BID 06/26/17 02/06/18 Hfa] Lubiprostone [Amitiza] 8 mcg PO BID 06/26/17 02/06/18 Tiotropium [Spiriva] 18 mcg IH DAILY 06/26/17 02/06/18 Venlafaxine [Effexor] 37.5 mg PO BID 06/26/17 02/06/18 Ascorbic Acid [Vitamin C 500 mg 500 mg PO DAILY 07/04/17 02/06/18 Tab] Cyanocobalamin [Vitamin B12 1000 1,000 mcg PO DAILY 07/04/17 02/06/18 mcg Tab] Ranitidine HCl [Sunmark Acid 150 mg PO BID 07/04/17 02/06/18 Environmental Intern] Review of Systems - Physician Review All systems were reviewed & negative as marked: Yes - Review of Systems Constitutional: Normal. absent: Fevers Eyes: Normal ENT: Normal Respiratory: Normal. absent: SOB Cardiovascular: Normal. absent: Chest Pain, Palpitations Gastrointestinal: Normal. absent: Abdominal Pain, Diarrhea, Nausea, Vomiting Genitourinary Female: Normal Musculoskeletal: Other (right hip and leg disocomfort described as pins/needles) Skin: Normal Neurological: Normal Endocrine: Normal Hemo/Lymphatic: Normal Psychiatric: Normal Physical Exam Vital Signs Reviewed: Yes Vital Signs Temp Pulse Resp BP Pulse Ox 04/13/18 16:27 98.7 F 72 18 140/72 100 04/13/18 13:55 98.4 F 78 18 159/77 H 96 Temperature: Afebrile Blood Pressure: Normal Pulse: Regular Respiratory Rate: Normal Appearance: Positive for: Well-Appearing, Non-Toxic, Comfortable Pain Distress: None Mental Status: Positive for: Alert and Oriented X 3 - Systems Exam Head: Present: Atraumatic, Normocephalic Pupils: Present: PERRL Extroacular Muscles: Present: EOMI Conjunctiva: Present: Normal Mouth: Present: Moist Mucous Membranes Neck: Present: Normal Range of Motion Respiratory/Chest: Present: Clear to Auscultation, Good Air Exchange. No: Respiratory Distress, Accessory Muscle Use Cardiovascular: Present: Regular Rate and Rhythm, Normal S1, S2. No: Murmurs Abdomen: No: Tenderness, Distention, Peritoneal Signs Back: Present: Normal Inspection. No: CVA Tenderness, Paraspinal Tenderness Upper Extremity: Present: Normal Inspection. No: Cyanosis, Edema Lower Extremity: Present: NORMAL PULSES, Normal ROM, Tenderness (tenderness to lateral aspect below knee to ankle of right leg). No: Edema, CALF TENDERNESS, Radha's Sign Neurological: Present: GCS=15, CN II-XII Intact, Speech Normal, Normal Sensory Function Skin: Present: Warm, Dry, Normal Color. No: Rashes Psychiatric: Present: Alert, Oriented x 3, Normal Insight, Normal Concentration Medical Decision Making ED Course and Treatment: 04/13/18 14:16 Impression: 87 year old female presents to the Emergency department for right leg discomfort described as pins/needles. Differential Diagnosis included but are not limited to: DVT vs. herniation vs. sciatica vs. muscle strain Plan: -- Motrin -- X-ray of right Pelvis -- X-ray of Lumbar Spine -- US of lower extremity -- Reassess and disposition Prior Visits: Notes and results from previous visits were reviewed. Progress Notes: Accession No. : [id number] Patient Name / ID : [id number] BOB / [id number] Exam Date : 04/13/2018 15:31:19 ( Addendum_Approved ) Study Comment : Sex / Age : F / 87Y Creator : Iram Minaya MD Dictator : Iram Minaya MD Distributor Of Directories : Grain Commodity Manager : Iram Minaya MD Approver2 : Report Date : 04/13/2018 15:52:15 My Comment : ADDENDUM: This addendum is in regards to revision of findings. Date of service: 04/13/2018 PROCEDURE: Radiographs of the Lumbar Spine. IMPRESSION: 1. Superior endplate compression deformity in the L2 vertebral body is new since the prior CT examination. No retropulsion. 2. Interval progression of osteoporotic compression deformities in the T12 and L1 vertebral bodies. 3. Mild multilevel degenerative disc disease. [ Addendum Report Added by Iram Minaya MD at 04/13/2018 16:43:01 ] PROCEDURE: Radiographs of the Lumbar Spine. COMPARISON: CT abdomen and pelvis from 03/24/2017 IMPRESSION: Age indeterminate but likely chronic osteoporotic compression fracture deformities in the T12, L1 and L2 vertebral bodies, worse at L1. Osteoporotic compression fracture at L2 is new since the prior CT from March 2017 with interval progression of osteoporotic fractures in the T12 and L1 vertebral bodies. PROCEDURE: Right Hip Radiographs. IMPRESSION: No acute displaced fracture or bone destruction. Please note occult fractures cannot be excluded on plain radiographs. If there is a persistent clinical concern, an MRI of the hip may be performed for further evaluation. Mild degenerative osteoarthrosis in the hip joints, worse on the left. Patient pain improved after tramadol. She is able to walk with her cane at baseline. She has a walker at home. Her daughter arrived and I explained the results to her and the patient. I discussed the case with Dr. Ibarra who agrees patient can follow up with Dr. Will as an outpatient to arrange for Physical therapy and imaging etc. Patient and daughter agree with plan and already have follow up with Dr. Will in 1-2days. - RAD Interpretation Radiology Orders: 04/13/18 14:16 DUPLEX LOWER EXTRM VEIN BILAT [US] Stat 04/13/18 14:17 HIP MIN 2V W/ PELVIS RT [RAD] Stat LS SPINE WITH OBL > 18 YRS OLD [RAD] Stat Airport Manager: Radiologist - Medication Orders Current Medication Orders: Discontinued Medications Ibuprofen (Motrin Tab) 600 mg PO STAT STA Stop: 04/13/18 14:17 Last Admin: 04/13/18 14:23 Dose: 600 mg MAR Pain/Vitals Document 04/13/18 14:23 LA (Rec: 04/13/18 14:24 LA [id number]) Pain Reassessment Is This A Pain ReAssessment? No Sleep Is patient sleeping during reassessment? No Presence of Pain Presence of Pain Yes Pain Scale Used Pain Scale Used Numeric Location Left, Right or Bilateral Right Description Intermittent Intensity 6 Scale Used Numeric Pain Behavior Guarding Re-Assess: SIXTO Pain/Vitals Document 04/13/18 15:23 LA (Rec: 04/13/18 15:48 [email or web address] Pain Reassessment Is This A Pain ReAssessment? Yes Sleep Is patient sleeping during reassessment? No Presence of Pain Presence of Pain Yes Pain Scale Used Pain Scale Used Numeric Location Left, Right or Bilateral Right Pain Location Body Site Hip Intensity 5 Tramadol HCl (Ultram) 50 mg PO STAT STA Stop: 04/13/18 15:41 Last Admin: 04/13/18 15:53 Dose: 50 mg SIXTO Pain Assessment Document 04/13/18 15:53 LA (Rec: 04/13/18 15:55 [email or web address] Pain Reassessment Is this a pain reassessment? No Sleep Is patient sleeping during reassessment? No Presence of Pain Presence of Pain Yes Pain Scale Used Pain Scale Used Numeric Location Left, Right or Bilateral Right Pain Location Body Site Hip Description Description Intermittent Intensity of Pain at present 4 - Scribe Statement The provider has reviewed the documentation as recorded by the Scribe Sharlene Pena. All medical record entries made by the Scribe were at my direction and personally dictated by me. I have reviewed the chart and agree that the record accurately reflects my personal performance of the history, physical exam, medical decision making, and the department course for this patient. I have also personally directed, reviewed, and agree with the discharge instructions and disposition. Disposition/Present on Arrival - Present on Arrival Any Indicators Present on Arrival: No History of DVT/PE: No History of Uncontrolled Diabetes: No Urinary Catheter: No History of Decub. Ulcer: No History Surgical Site Infection Following: None - Disposition Have Diagnosis and Disposition been Completed?: Yes Diagnosis: Sciatica, Radicular pain, Compression fracture Disposition: HOME/ ROUTINE Disposition Time: 16:20 Patient Plan: Discharge Condition: IMPROVED Discharge Instructions (ExitCare): Vertebral Compression Fracture, Sciatica, Radiculopathy Additional Instructions: PAULINO MACK, thank you for letting us take care of you today. Your provider was Jt Courtney DO and you were treated for Sciatica, Radiculapathy. The emergency medical care you received today was directed at your acute symptoms. If you were prescribed any medication, please fill it and take as directed. It may take several days for your symptoms to resolve. Return to the Emergency Department if your symptoms worsen, do not improve, or if you have any other problems. Please contact your doctor or call one of the physicians/clinics you have been referred to that are listed on the Patient Visit Information form that is included in your discharge packet. Bring any paperwork you were given at discharge with you along with any medications you are taking to your follow up visit. Our treatment cannot replace ongoing medical care by a primary care provider outside of the emergency department. Thank you for allowing the [facility] team to be part of your care today. If you had an X-Ray or CT scan: A Radiologist will review the ED reading if any change in treatment is needed we will contact you. If you had a blood, urine, or wound culture: It will take several days for the results, if any change in treatment is needed we will contact you. If you had an STI test: It will take 48 hours for the results. Please call after 1 week if you have not heard back. Prescriptions: traMADol [Ultram] 50 mg PO Q6H PRN #20 tab PRN Reason: Pain, Moderate (4-7) Referrals: John Will MD [Primary Care Provider] - Follow up with primary Forms: [employer] (Khmer)
--- NOTE | 2018-04-13 15:49 | RAD ---
PROCEDURE: Right Hip Radiographs. HISTORY: pain COMPARISON: None. FINDINGS: BONES: There is diffuse bone demineralization. The pelvic ring is intact. There is no acute displaced fracture or bone destruction. JOINTS: There is mild degenerative osteoarthrosis in the hip joints, worse on the left. The sacroiliac joints are normal. There is mild osteitis pubis. SOFT TISSUES: Normal. OTHER FINDINGS: None. IMPRESSION: No acute displaced fracture or bone destruction. Please note occult fractures cannot be excluded on plain radiographs. If there is a persistent clinical concern, an MRI of the hip may be performed for further evaluation. Mild degenerative osteoarthrosis in the hip joints, worse on the left.
--- NOTE | 2018-04-13 15:54 | RAD ---
Date of service: 04/13/2018 PROCEDURE: Radiographs of the Lumbar Spine. HISTORY: Back pain COMPARISON: CT abdomen and pelvis from 03/24/2017 FINDINGS: BONES: There is diffuse bone demineralization. There is normal alignment of the lumbar vertebral bodies. There is normal lumbar lordosis. There are age indeterminate but likely chronic osteoporotic compression deformities in the T12, L1 and L2 vertebral bodies, worse at L1, new and and [address] from March 2017 with interval progression of osteoporotic fractures in the T12 and L1 vertebral bodies. . DISC SPACES: There is multilevel degenerative disc disease with mild anterior spurring and multilevel facet arthropathy. OTHER FINDINGS: There are advanced atherosclerotic calcifications in the abdominal aorta. IMPRESSION: Age indeterminate but likely chronic osteoporotic compression fracture deformities in the T12, L1 and L2 vertebral bodies, worse at L1. Osteoporotic compression fracture at L2 is new since the prior CT from March 2017 with interval progression of osteoporotic fractures in the T12 and L1 vertebral bodies.
[2018-04-13 16:29] VITALS: BP 140/72; PULSE 72; TEMP 98.7; O2SAT 100
--- NOTE | 2018-04-13 17:47 | US ---
HISTORY: Leg pain and swelling. Evaluate for DVT PHYSICIAN(S): Mckinley Stroud MD. TECHNIQUE: Duplex sonography and color-flow Doppler with graded compression were used to evaluate the deep venous systems of both lower extremities. FINDINGS: The visualized deep venous systems of both lower extremities are sonographically normal and compressible. Normal wave forms and augmentation are seen. There is no sonographic evidence for deep venous thrombosis in the visualized segments of both lower extremities. IMPRESSION: No sonographic evidence for deep venous thrombosis in the visualized segments of both lower extremities.
== END 2018-04-13 17:55 | disposition home or self-care (01) ==
LOC: ED 13:40
DX: M54.30 Sciatica, unspecified side (principal); M48.56XA Collapsed vertebra, not elsewhere classified, lumbar region, initial encounter for fracture; I10 Essential (primary) hypertension; J44.9 Chronic obstructive pulmonary disease, unspecified; F17.210 Nicotine dependence, cigarettes, uncomplicated

== ENCOUNTER 2018-12-29 15:30 | Emergency (ER) | payer MEDICARE, OTHER | END 2018-12-29 20:24 | disposition home or self-care (01) | LOC: ED 15:30 ==

== ENCOUNTER 2019-01-04 08:11 | Day surgery (SDC) | payer MEDICARE, OTHER ==
[2019-01-04 09:26] VITALS: TEMP 98
[2019-01-04 09:39] VITALS: BMI 33.1
[2019-01-04] MEDS ORDERED: Propofol 10 mg/ml Inj (20 ML) ONE (09:40)
[2019-01-04] MEDS ORDERED: Simethicone 40 mg/0.6 ml Liquid (30 ml) ONE (09:51)
[2019-01-04] MEDS ORDERED: Sodium Chloride 0.9% 1,000 ML IV SCH (10:15)
[2019-01-04 15:27] VITALS: BP 167/75; PULSE 77; RESP 18; O2SAT 96
== END 2019-01-04 12:52 | disposition home or self-care (01) ==
LOC: ENDO 08:11
PROVIDERS: ATTEND Internal Medicine Gastroenterology
DX: K22.2 Esophageal obstruction (principal); K44.9 Diaphragmatic hernia without obstruction or gangrene; K29.70 Gastritis, unspecified, without bleeding
CPT/HCPCS: 43239; 88305; 88342; J2704; J7030; J7040